=== PATIENT | male | born 1995 | race Caucasian/White ===

== ENCOUNTER 2019-10-04 12:39 | Emergency (ER) | payer OTHER ==
[~2019-10-04] VITALS: Ht 182.9 cm; Wt 122.9 kg
[2019-10-04 13:21] VITALS: BP 131/84; Ht 182.9 cm; Wt 122.9 kg
== END 2019-10-04 14:27 | disposition home or self-care (01) ==
LOC: ED 12:39
DX: B00.1 Herpesviral vesicular dermatitis (principal); J03.90 Acute tonsillitis, unspecified; J45.909 Unspecified asthma, uncomplicated